=== PATIENT | female | born 1965 | race Caucasian/White ===

== ENCOUNTER 2018-05-14 16:49 | Emergency (ER) | payer BC, MEDICAID ==
[~2018-05-14] VITALS: Ht 157.5 cm; Wt 90.7 kg
[2018-05-14 17:14] VITALS: BP 150/89
== END 2018-05-14 18:47 | disposition home or self-care (01) ==
LOC: ER 16:51
DX: S93.491A Sprain of other ligament of right ankle, initial encounter (principal); F17.200 Nicotine dependence, unspecified, uncomplicated; I10 Essential (primary) hypertension; J45.909 Unspecified asthma, uncomplicated; Z90.89 Acquired absence of other organs; Z88.0 Allergy status to penicillin; X50.1XXA Overexertion from prolonged static or awkward postures, initial encounter; Y93.89 Activity, other specified; Y92.89 Other specified places as the place of occurrence of the external cause; Y99.8 Other external cause status
CPT/HCPCS: 73630-TC; A4606; Z7610

== ENCOUNTER 2018-06-27 14:16 | Emergency (ER) | payer BC ==
[~2018-06-27] VITALS: Ht 157.5 cm; Wt 87.5 kg
[2018-06-27 14:29] VITALS: BP 157/79
[2018-06-27] MEDS ORDERED: KETOROLAC TROMETHAMINE INJ 30 MG/ML VIAL IM ONE (15:00)
[2018-06-27] MEDS ORDERED: KETOROLAC TROMETHAMINE INJ 30 MG/ML VIAL ONE (15:04)
--- NOTE | 2018-06-27 15:21 | NUR ---
for discharge- [facility] given verbalized understanding-Home ambulatory in No obvious distress Stable
== END 2018-06-27 15:25 | disposition home or self-care (01) ==
LOC: ER 14:17
DX: M72.2 Plantar fascial fibromatosis (principal); R42 Dizziness and giddiness; I10 Essential (primary) hypertension; J45.909 Unspecified asthma, uncomplicated; F17.200 Nicotine dependence, unspecified, uncomplicated; Z90.89 Acquired absence of other organs; Z88.0 Allergy status to penicillin
CPT/HCPCS: 96372; 99283; A4606; J1885

== ENCOUNTER 2018-08-17 23:02 | Emergency (ER) | payer BC ==
[~2018-08-17] VITALS: Ht 157.5 cm; Wt 86.2 kg
[2018-08-17 23:59] VITALS: BP 176/93
== END 2018-08-18 01:39 | disposition left against medical advice (07) ==
LOC: ER 23:04
DX: J45.909 Unspecified asthma, uncomplicated (principal); I10 Essential (primary) hypertension; R42 Dizziness and giddiness; Z98.890 Other specified postprocedural states; Z90.89 Acquired absence of other organs; Z53.21 Procedure and treatment not carried out due to patient leaving prior to being seen by health care provider

== ENCOUNTER 2018-10-23 23:51 | Emergency (ER) | payer BC ==
--- NOTE | 2018-10-24 00:49 | NUR ---
CALLED IN [facility], NO ANSWER.
--- NOTE | 2018-10-24 01:07 | NUR ---
CALLED IN [facility], NO ANSWER.
--- NOTE | 2018-10-24 01:28 | NUR ---
CALLED IN [facility], NO ANSWER.
== END 2018-10-24 01:28 | disposition left against medical advice (07) ==
LOC: ER 23:58
DX: Z53.21 Procedure and treatment not carried out due to patient leaving prior to being seen by health care provider (principal)

== ENCOUNTER 2018-10-25 20:29 | Emergency (ER) | payer BC ==
[~2018-10-25] VITALS: Ht 162.6 cm; Wt 73.5 kg
[2018-10-25 20:29] VITALS: BP 153/99
[2018-10-25] MEDS ORDERED: HYDROCODONE/APAP 5/325MG 1 EACH TABLET PO ONE (21:00)
[2018-10-25] MEDS ORDERED: IBUPROFEN 400 MG TABLET PO ONE (21:00)
[2018-10-25] MEDS ORDERED: HYDROCODONE/APAP 5/325MG 1 EACH TABLET ONE (21:01)
[2018-10-25] MEDS ORDERED: IBUPROFEN 400 MG TABLET ONE (21:02)
== END 2018-10-25 21:09 | disposition home or self-care (01) ==
LOC: ER 20:32
DX: M79.671 Pain in right foot (principal); G89.29 Other chronic pain; I10 Essential (primary) hypertension; J45.909 Unspecified asthma, uncomplicated; F17.200 Nicotine dependence, unspecified, uncomplicated; Z90.89 Acquired absence of other organs; Z88.0 Allergy status to penicillin

== ENCOUNTER 2019-07-20 22:16 | Emergency (ER) | payer BC, OTHER ==
[~2019-07-20] VITALS: Ht 162.6 cm; Wt 73.9 kg
[2019-07-20 22:16] VITALS: BP 142/76
[2019-07-20] MEDS ORDERED: HYDROCODONE/APAP 5/325MG 1 EACH TABLET ONE (23:06)
--- NOTE | 2019-07-20 23:09 | NUR ---
xray at bedside
[2019-07-20] MEDS ORDERED: HYDROCODONE/APAP 5/325MG 1 EACH TABLET PO ONE (23:30)
== END 2019-07-21 00:40 | disposition home or self-care (01) ==
LOC: ER 22:25
DX: S30.0XXA Contusion of lower back and pelvis, initial encounter (principal); F17.200 Nicotine dependence, unspecified, uncomplicated; I10 Essential (primary) hypertension; J45.909 Unspecified asthma, uncomplicated; Z90.89 Acquired absence of other organs; Z98.890 Other specified postprocedural states; Z88.0 Allergy status to penicillin; W01.0XXA Fall on same level from slipping, tripping and stumbling without subsequent striking against object, initial encounter; Y93.89 Activity, other specified; Y92.89 Other specified places as the place of occurrence of the external cause; Y99.8 Other external cause status
CPT/HCPCS: 72220-TC

== ENCOUNTER 2025-01-25 11:43 | Emergency (ER) | payer MEDICARE, OTHER ==
[~2025-01-25] VITALS: Ht 157.5 cm; Wt 93.4 kg
[2025-01-25] MEDS ORDERED: ACETAMINOPHEN ES 500 MG TABLET ONE (12:10)
[2025-01-25] MEDS: ACETAMINOPHEN ES 500 MG TABLET PO ONE (12:14)
[2025-01-25 14:50] VITALS: BP 145/78; TEMP 98.1; O2SAT 98
== END 2025-01-25 14:55 | disposition home or self-care (01) ==
LOC: ER 11:52
DX: S82.61XA Displaced fracture of lateral malleolus of right fibula, initial encounter for closed fracture (principal); S82.62XA Displaced fracture of lateral malleolus of left fibula, initial encounter for closed fracture; I10 Essential (primary) hypertension; J45.909 Unspecified asthma, uncomplicated; F17.200 Nicotine dependence, unspecified, uncomplicated; Z88.0 Allergy status to penicillin; X50.1XXA Overexertion from prolonged static or awkward postures, initial encounter; Y93.89 Activity, other specified; Y92.89 Other specified places as the place of occurrence of the external cause; Y99.8 Other external cause status
CPT/HCPCS: 73562; 73610-TC